=== PATIENT | male | born 1975 | race Caucasian/White ===

== ENCOUNTER 2019-09-21 01:27 | Emergency (ER) | payer SELFPAY ==
[~2019-09-21] VITALS: Ht 177.8 cm; Wt 81.8 kg
[2019-09-21 01:28] VITALS: BP 141/93
[2019-09-21] MEDS ORDERED: LIDOCAINE 2% MDV 20 ML VIAL SC ONE (02:00)
[2019-09-21] MEDS ORDERED: ADACEL/BOOSTRIX VACCINE (DIPHTH/PERTUSS/ACELL/TETANUS)0.5ML SYR (90715) IM ONE (02:30)
== END 2019-09-21 03:03 | disposition home or self-care (01) ==
LOC: M ED 01:27
DX: S61.412A Laceration without foreign body of left hand, initial encounter (principal); W27.8XXA Contact with other nonpowered hand tool, initial encounter; Y92.018 Other place in single-family (private) house as the place of occurrence of the external cause; E78.5 Hyperlipidemia, unspecified; F17.210 Nicotine dependence, cigarettes, uncomplicated; F17.220 Nicotine dependence, chewing tobacco, uncomplicated